=== PATIENT | male | born 1950 | race Caucasian/White ===

== ENCOUNTER → 2017-12-27 11:58 | Outpatient (CLI) | payer MEDICARE, OTHER, SELFPAY ==
--- NOTE | 2017-12-27 12:01 | DI.RAD.S_ITS ---
PROCEDURE: PAIN L/S TRANSFORAMINAL INJECT INDICATIONS: herniated nucleus pulposus l 4/5 right side. FINDINGS: Fluoroscopic spot filming was performed to verify placement of spinal needles at the left L4-5 interlaminar notch level(s), as labeled on the films. Appropriate location(s) of the needle tip(s) was confirmed by injection of iodinated contrast. IMPRESSION: Left L4-5 interlaminar notch needle tip localization. Dictated by: Rob Mosley M.D. on 12/27/2017 at 15:48 Approved by: Rob Mosley M.D. on 12/27/2017 at 15:49
[2017-12-27 12:37] VITALS: BP 123/73; PULSE 85; RESP 16; TEMP 37; O2SAT 100
[2017-12-27 13:36] VITALS: BP 128/77; PULSE 78; RESP 20; O2SAT 98
[2017-12-27 13:46] VITALS: BP 119/70; PULSE 75; RESP 16; O2SAT 100
--- NOTE | 2017-12-27 13:56 | PC.NURSE ---
post vital signs 122/73 pulse 78 oxygen 98% rr 16, pt remained alert, able to walk without assistance after discharge. Pt and understand instructions. They were given dc instruction sheet. Iv dc'd intact. neuro intact.
--- NOTE | 2017-12-27 14:34 | P.PCN_ITS ---
Procedures Date/Time Date of procedure: 12/27/17 Time of procedure: 13:26 General Procedure description: PATIENT: Daren Puente DATE OF : 1950 DATE OF SURGERY: 12/27/2017 PROVIDER: Lisandro Kelly DO Operative Note PREOP DIAGNOSIS 1. HNP WITH RADICULAR FEATURES, 2. MULTILEVEL CENTRAL STENOSIS, POST OP DIAGNOSIS 1. HNP WITH RADICULAR FEATURES, 2. MULTILEVEL CENTRAL STENOSIS, PROCEDURES 1. FLUORSCOPICALLY GUIDED CONTRAST CONTROLLED INTERLAMINAR EPIDURAL STEROID INJECTION - L4/5 PHYSICIAN: Lisandro Kelly DO INDICATIONs: Daren is referred by Dr. Graff for treatment of Bilateral Foraminal Stenosis R>L LE symptoms. FINDINGS Multilevel Central Spinal Stenosis with Nerve Root Compression DESCRIPTION OF PROCEDURE Fluoroscopically guided, contrast-controlled L4/5 translaminar epidural steroid injection. Following denial of allergy and review of potential side effects and complications, including, but not necessarily limited to, infection, allergic reaction, local tissue breakdown, temporary as well as permanent nerve injury, paralysis, stroke and possible , the patient indicated that the patient understood and agreed to proceed. An informed consent document was signed by the patient, witnessed by a nurse, and placed in the patient's chart. Additionally, other treatment options including modalities, medications, and physical therapy were reviewed with the patient. Per the patient request, IV conscious sedation was administered via 3mg of Versed to patient comfort. The patient's vital signs were monitored throughout the procedure by both the nurse and the physician without significant fluctuation. The patient remained conversant throughout the procedure. In the prone position, following sterile prep and drape of the lumbar region, the L4/5 translaminar space was identified fluoroscopically. The skin was anesthetized via a 25-gauge, 1.5-inch needle with 1% lidocaine solution. At this point, a 22-gauge short bevel spinal needle was atraumatically introduced and advanced under fluoroscopic guidance into the region of the L4/5 translaminar space. Depth was confirmed on lateral view. Radiological data, including multiple fluoroscopic views of the lumbar spine, reveal a spinal needle at the L4/5 translaminar space. Lateral views then show placement of the needle in the epidural space. Subsequent views show contrast material flowing superiorly and inferiorly in the epidural space. No vascular or intrathecal uptake is observed. At this point, using loss of resistance technique with saline and air, the epidural space was entered. This was confirmed following negative aspiration with injection of approximately 1.5 cc of Isovue 200, showing excellent epidural flow without vascular or intrathecal uptake. At this point, 1 cc of 1 % lidocaine solution combined with 3 cc or 20 mg of dexamethasone and 80mg Depo medrol was injected without incident. The patient was then transferred to the recovery area where they were observed for an appropriate period of time after the injection. The patient reported a VAS score of 6 prior to the procedure and a post-procedure VAS of 0. Total Fluoroscopy Time: 11.8 seconds, 8.99 mGy Total Conscious Sedation Time: 24min POST OP INSTRUCTIONS The patient was provided a Pain Log to continue to record their response to the target-specific procedure prior to follow-up visit with their referring physician. Additionally, specific post-injection care instructions and a contact number to our office were provided if concerns arise regarding possible complications associated with the procedure are suspected. Lisandro Kelly, Complications: none
== END ==
PROVIDERS: PCP Family Medicine Geriatric Medicine; Visit Provider Physical Medicine & Rehabilitation
DX: M51.26 Other intervertebral disc displacement, lumbar region (principal)
CPT/HCPCS: 64483; J1040; J1100; J2250

== ENCOUNTER 2018-01-25 08:09 | Outpatient (CLI) | payer MEDICARE, OTHER, SELFPAY ==
[2018-01-25 09:31] VITALS: BP 112/70; PULSE 64; RESP 20; TEMP 36.1; O2SAT 97
--- NOTE | 2018-01-25 09:56 | DI.RAD.S_ITS ---
PROCEDURE: PAIN L/SI FACET INJ/BLK 1STL INDICATIONS: 67 year-old male with facet joint arthropathy and spinal canal stenosis. FINDINGS: Fluoroscopic spot filming was performed to verify placement of spinal needles at the right L4-L5 and L5-S1 level(s), as labeled on the films. Appropriate location(s) of the needle tip(s) was confirmed by injection of iodinated contrast. IMPRESSION: Fluoroscopic guidance for bilateral L4-L5 and L5-S1 facet joint steroid injections. Dictated by: Noah Arreola M.D. on 01/25/2018 at 11:42 Approved by: Noah Arreola M.D. on 01/25/2018 at 11:45
--- NOTE | 2018-01-25 09:56 | PM.PROC.1 ---
Procedures Date/Time Date of procedure: 01/25/18 Time of procedure: 09:56 General Procedure description: PREOP DIAGNOSIS 1. FACET ARTHROPATHY 2. AXIAL LBP 3. MULTILEVEL DDD POST OP DIAGNOSIS 1. FACET ARTHROPATHY 2. AXIAL LBP 3. MULTILEVEL DDD PROCEDURES 1. FLUORSCOPICALLY GUIDED CONTRAST CONTROLLED FACET JOINT INJECTIONS BILATERAL L4/5, L5/S1 PHYSICIAN: DO DANNY Frazier Daren is referred by Dr. Graff for treatment of Axial LBP FINDINGS Multilevel Facet Arthropathy with Clinically significant axial LBP DESCRIPTION OF PROCEDURE Fluoroscopically guided, contrast-controlled bilateral L4/5, L5/S1 facet joint injections. Following denial of allergy and review of potential side effects and complications, including, but not necessarily limited to, infection, allergic reaction, local tissue breakdown, stroke, temporary or permanent nerve injury, paralysis, and possible , the patient indicated that the patient understood and agreed to proceed. An informed consent document was signed by the patient, witnessed by a nurse, and placed in the patient's chart. Additionally, other treatment options including medications, modalities, and physical therapy were reviewed with the patient. Per the patient request, IV conscious sedation was administered via 3mg of Versed to patient comfort. The patient's vital signs were monitored throughout the procedure by both the nurse and the physician without significant fluctuation. The patient remained conversant throughout the procedure. In the prone position, following sterile prep and drape of the lumbar region, the posterior aspect of the L4/5, L5/S1 facet joints were identified fluoroscopically. The skin was anesthetized via a 25-gauge 1.5-inch needle with 1% lidocaine solution into the corresponding facet joints. At this point, a 22-gauge 3.5-inch spinal needle was atraumatically introduced and advanced under fluoroscopic guidance into the corresponding facet joints. Following negative aspiration, injections of approximately 0.2-cc of Isovue 200 confirmed interarticular placement without vascular uptake. The identical procedure was then performed at the L4/5, L5/S1 facet joints on the left. Radiological data, including multiple fluoroscopic views of the lumbosacral spine, reveal a spinal needle at the L3/4, L5/S1 facet joints bilaterally. Subsequent views show flow of contrast material both superiorly and inferiorly within the joint space without vascular or intrathecal uptake. At this point, a total of 0.5 cc including a mixture of 0.25 cc Marcaine and 0.25 cc betamethasone was injected without complication into each of the corresponding facet joints. The patient was then transferred to the recovery area where they were observed for an appropriate period of time after the injection. The patient reported a VAS score of 7 prior to the procedure and a post-procedure VAS of 0. Total Fluoroscopy Time: 20.3 seconds Total Conscious Sedation Time: 24min POST OP INSTRUCTIONS The patient was provided a Pain Log to continue to record their response to the target-specific procedure prior to follow-up visit with their referring physician. Additionally, specific post-injection care instructions and a contact number to our office were provided if concerns arise regarding possible complications associated with the procedure are suspected. Lisandro Kelly, Complications: none
[2018-01-25 10:15] VITALS: BP 134/52; PULSE 65; RESP 21; O2SAT 100
[2018-01-25] MEDS: BETAMETHASONE 30 MG/5 ML MDV 6 MG INJ (10:15)
[2018-01-25] MEDS: MIDAZOLAM 5 MG/5 ML VIAL IV (10:15)
[2018-01-25] MEDS: IOPAMIDOL 15 ML VIAL 3 ML INJ (10:15)
[2018-01-25] MEDS: BETAMETHASONE 30 MG/5 ML MDV 12 MG INJ (10:15)
[2018-01-25] MEDS: LIDOCAINE 1% 20 ML INJ 10 ML INJ (10:15)
[2018-01-25 10:20] VITALS: BP 130/77; PULSE 67; RESP 12; O2SAT 100
[2018-01-25 10:25] VITALS: BP 128/78; PULSE 68; RESP 10; O2SAT 100
[2018-01-25 10:30] VITALS: BP 131/75; PULSE 66; RESP 9; O2SAT 100
[2018-01-25 10:44] VITALS: BP 108/67; PULSE 71; RESP 16; O2SAT 100
== END 2018-01-25 12:31 | disposition home or self-care (01) ==
PROVIDERS: PCP Family Medicine Geriatric Medicine; Visit Provider Physical Medicine & Rehabilitation
DX: M51.26 Other intervertebral disc displacement, lumbar region (principal); M41.20 Other idiopathic scoliosis, site unspecified; M47.816 Spondylosis without myelopathy or radiculopathy, lumbar region; M48.07 Spinal stenosis, lumbosacral region
CPT/HCPCS: 64493; 64494; 99152; 99153; J0702; J2250

== ENCOUNTER 2018-03-31 05:57 | Inpatient (IN) | payer MEDICARE, OTHER, SELFPAY ==
[2018-03-20 09:22] VITALS: BMI 27.1
[2018-03-31] VITALS (21 sets, daily range): BP systolic 108–145; BP diastolic 52–90; PULSE 14–96; RESP 10–20; TEMP 35.9–36.6; O2SAT 95–100; BMI 27.1
--- NOTE | 2018-03-31 07:22 | PM.PREOP ---
Pre-operative Note Interval Note Pre-op Check: Yes History & Physical Reviewed by Physician and Yes Exam Performed Changes: No
[2018-03-31] MEDS: LACTATED RINGERS 1,000 ML 42 ML IV ×2 (07:30→10:53)
[2018-03-31] MEDS: CEFAZOLIN 2 GM/100 ML FROZ.PIGGY IV ×3 (07:55→23:43)
--- NOTE | 2018-03-31 08:33 | SUR.OPER ---
Right lateral on padded OR table. Head on pillow, gel axillary roll, pillow to support left arm. Legs flexed, pillows between legs, gel pad under down leg and ankle. Multiple passes of 3 inch cloth tape across shoulder, hip, upper and lower legs to secure patient on OR table. Prone on spine table, head in foam head support, padded chest and pelvic supports, gel pad at knees, lower legs supported by pillows; nipples, genitalia and toes free of pressure, arms secured on foam padded arm boards at <90 degrees abduction. Tape over blanket at thigh secured to table.
[2018-03-31] MEDS: VANCOMYCIN 1,000 MG VIAL 1000 MG TOP (08:40)
[2018-03-31] MEDS: THROMBIN (BOVINE) 5,000 UNIT VIAL 5000 UNIT TOP (08:40)
[2018-03-31] MEDS: SODIUM CHLORIDE 0.9% 1,000 ML, GENTAMICIN 80 MG IRR (08:41)
[2018-03-31] MEDS: BUPIVACAINE 0.5% (PF) 4 ML, MORPHINE-PF 4 MG, BUTORPHANOL 1 MG, fentaNYL 100 MCG INJ (11:24)
--- NOTE | 2018-03-31 13:25 | P.OP_ITS ---
Operative Date/Time/Diagnoses Date of procedure: 03/31/18 Time of procedure: 13:16 Pre-op diagnosis: Lumbar stenosis with radiculopathy Lumbar scoliosis Post-op diagnosis: same Procedure & Clinicians Procedure: L4-5 anterior fusion with cage L4-5 posterior fusion L4-5 and L5-S1 laminectomies L5-S1 TLIF (post/post innerbody fusion) with cage L4, L5, S1 screws Iliac crest bone graft Use of microscope Placement of epidural catheter Same procedure as scheduled: Yes Indications: [age] year old male with intractable pain from stenosis. They had failed conservative management and requested operative intervention. Risks and benefits of surgery were discussed and appropriate consents were obtained. Surgeon: Fady Ramirez Vascular Manager: Nikki Huff Anesthesia Type: General Operative Notes Findings: none Closure Type: primary Specimen(s): none sent Implants & Drains: NuVasive Precept MAS screws NuVasive XLIF cage Globus Rise cage Applied: catheter Estimated Blood Loss (mL): 50 Procedure in detail: Patient was brought to the operating room and intubated on the table. Time-out was performed. They were then rolled over to the lateral decubitus position with the [id number]. The table was bent and they were taped down in the correct position. X-rays were taken to confirm a true AP and lateral. Preoperative antibiotics were given. The left flank was prepped and draped in standard sterile fashion. Using fluoroscopy, a 3 cm incision was made above the iliac crest. We bluntly dissected down with Metzenbaum scissors and split the 3 abdominal muscle layers. We dissected out the retroperitoneal space and using finger guidance, brought our 1st dilator down to the psoas muscle. Using neuromonitoring and fluoroscopy, we placed it through the psoas onto the L4-5 disc space in an anterior position and gradually pulled the dilator posteriorly along the disc space. We placed our guidewire and measured our depth for the retractor. We then dilated with the next 2 dilators and then placed our retractor over the dilators. Position was confirmed with fluoroscopy and the retractor was locked down to the bar. We opened up the retractor and checked with neuro monitoring. We then placed the rosalina and again checked with neuro monitoring. The retractor was opened further and the ALL retractor was placed. An annulotomy was performed. We then performed a complete diskectomy with ring curette, pituitary, box osteotome. A Lynne was advanced across the disc space under fluoroscopy to release the lateral annulus on the opposite side. We then used sequentially larger trials and confirmed under fluoroscopy. An XLIF cage was packed with Osteocell bone graft and impacted into the L4-5 disc space with fluoroscopy for the anterior fusion at this level. The wound was irrigated. The retractor was closed down. The rosalina was removed. We carefully removed the retractor with direct visualization to make sure there was no neurovascular or abdominal injury. Final x-rays were taken. The muscle fascia was closed, superficial tissue was closed. The skin was closed. Sterile dressing was placed. The patient was then rolled over on the well-padded prone position on the Shawn table. Using fluoroscopy for localization, a 5 cm incision was made to the right of the midline. We split through the right paraspinal muscles. We then used a combination of neural monitoring and fluoroscopy to place Jamshidi needles down the right pedicles of L4, L5, and S1. These were switched to guidewires. We then tapped and placed our screw shanks. We opened up the retractor and cleared off our posterolateral gutter and used a bur on the transverse processes. We then cleared medially and opened up the medial blade. We brought in the microscope. We then began placing our screws. A laminectomy was performed at L4-5 and L5- S1 with a bur and Kerrison rongeurs. There was an extremely large facet cyst growing at L4-5 that had to be carefully dissected off the dura until we had cleared. At that point we could reach across the opposite side. We carefully depressed the dura to reach to the opposite side and decompress the entire central canal. We cleared out the neural foramen. In the end the ball probe could be placed cephalad and caudally across to the opposite side in the foramen and everything was opened. We then began our TLIF. Wecompleted our facetectomy on the right at L5-S1 to loosen up the side as well as open up the neural foramen more. The dura was retracted medially and the disc was prepared with bipolar. A scalpel used for an annulotomy. We then performed a complete diskectomy with a combination of paddles, Roz, curettes, pituitaries. The disc space was packed with Osteocell bone graft and the globus Rise cage was placed and expanded under fluoroscopy. We had good expansion and lifting up on the right-hand side. This completed the posterior fusion portion of the TLIF at L5S1. The wound was copiously irrigated. An epidural catheter was primed with 4mL of 0.5% bupivacaine, 100 mcg fentanyl, 4 mg Duramorph, 1 mg Stadol. The dura was depressed under the cephalad lamina with a ball probe and the epidural catheter was gently advanced 6 cm cephalad. We then removed the retractor and placed the screw heads and locked the ronnie down. A small stab incision was made over the PSIS and a Jamshidi needle was placed into the iliac crest and several mL of bone marrow was aspirated. This was mixed with our locally harvested bone graft as well as the remaining Osteocell and placed in the posterolateral gutter for the posterior fusion at L4-5 and for the TLIF at L5-S1. The fascia was then closed. The epidural was then injected without resistance. The catheter was pulled and we closed more over the fascia. We then went to the left-hand side. Another 5 cm incision was made on the left. Bovie was used to split the fascia. We then used fluoro and monitoring to percutaneously place our Jamshidi needles on the left at L4, L5 and S1. We switched the guidewires, tapped and placed our screws. We placed a ronnie and locked it down. Final x-rays were taken. The wound was irrigated and the fascia was closed. Vancomycin powder was placed in the wounds. The superficial and skin were closed. Sterile dressing was placed. The patient was then rolled over, extubated, brought to the recovery room with no complications. Complications: none Condition: stable Disposition: PACU Plan for aftercare: Inpatient. Up with physical therapy.
[2018-03-31] MEDS: fentaNYL 100 MCG/2 ML INJ 50 MCG IV ×4 (13:30→13:51)
--- NOTE | 2018-03-31 13:33 | SUR.PHASEI ---
medicated for pain. appears more relaxed less restless.
--- NOTE | 2018-03-31 13:37 | SUR.PHASEI ---
continues to c/o pain and burning in lower back additional pain medication provided.
[2018-03-31] MEDS: hydrOXYzine 50 MG/ML INJ IM (13:46)
[2018-03-31] MEDS: HYDROMORPHONE 2 MG INJ 0.5 MG IV ×3 (13:55→14:21)
[2018-03-31] MEDS: HYDROCODONE/ACET 5/325 TABLET 2 TAB PO ×2 (15:06→18:57)
--- NOTE | 2018-03-31 15:20 | PC.NURSE ---
patient settled in from pacu. alert and conversant, family at bedside. denies nausea. 2 norco tabs given w/ crackers and cran juice for pain rated 4/10. foot scd's on. report given to abad guerrero. call light in reach.
[2018-03-31] MEDS: GABAPENTIN 600 MG TABLET PO ×2 (15:30→20:15)
[2018-03-31] MEDS: CELECOXIB 200 MG CAPSULE 400 MG PO (15:31)
[2018-03-31] MEDS: LACTATED RINGERS 1,000 ML 125 ML IV (15:35)
[2018-03-31] MEDS: HYDROMORPHONE 1 MG INJ 0.5 MG IV (15:52)
--- NOTE | 2018-03-31 16:54 | PT.IIE ---
Current Diagnoses Scoliosis, unspecified (03/31/18) Unspecified inflammatory spondylopathy, lumbar region (03/31/18) Spinal stenosis, lumbar region with neurogenic claudication (03/31/18) Radiculopathy, lumbar region (03/31/18) Surgery Performed Operation Date: 03/31/18 07:45 Actual Procedures p L4-5,L5-S1 Laminectomies & Ant/Post Instru. 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 (Acute) Degenerative lumbar spinal stenosis (Acute) Depression (Acute) Diverticulosis (Acute) H/O wisdom tooth extraction (Acute) Hearing loss (Acute) History of labyrinthitis (Acute ~2008) Hypothyroidism, unspecified (Acute) Low back pain (Acute) Lumbar facet arthropathy (Acute) Lumbar radiculopathy (Acute) Perforation of colon as colonoscopy complication (Acute ~2012) Scoliosis of lumbar spine (Acute) Sleep apnea (Acute) Spinal stenosis, lumbar region with neurogenic claudication (Acute) Testicular hypogonadism (Acute) Physical Therapy Inpatient Evaluation/Re-Eval M1 PT/OT-IP Prior Functional Status Start: 03/31/18 16:58 Freq: NEEDED Status: Active Protocol: Document 03/31/18 16:54 MDD (Rec: 03/31/18 17:12 MDD [id number]) Medical Review Prior Functional Status Medical History Reviewed Yes Communication normal Mobility and Gait independent with no AD Activities of Daily Living and IADL's independent Social History Household Members spouse Living Arrangements House Number of Floors (Floors) One Floor Number of Stairs To Enter/Railing? 2 steps to enter, no handrails Home Environment Standard Height Toilet Walk in Shower Home Equipment Straight Cane Shower Seat without Backrest Grab Bars Near Toilet Grab Bars In Shower Employment Status Retired Additional Social History Comment Pt lives on [address] with his , Yudith. He prefers to be called Zeke . They recently purchased a toilet frame with bars on either side. M2 PT-IP Current Condition Start: 03/31/18 16:58 Freq: NEEDED Status: Active Protocol: Document 03/31/18 16:54 MDD (Rec: 03/31/18 17:12 MDD [id number]) Physical Therapy Current Condition Current Condition Evaluation Date 03/31/18 Treatment Diagnosis s/p Lumbar fusion Onset Date 03/31/18 Precautions Lumbar Precautions Log Roll No Twisting Limit Bending Lifting Restriction of 10 lbs Gait Belt above Incisional Area Other Precautions burnett catheter M3 PT-IP Subjective Start: 03/31/18 16:58 Freq: NEEDED Status: Active Protocol: Document 03/31/18 16:54 MDD (Rec: 03/31/18 17:12 MDD [id number]) Subjective Physical Therapy Visit Type Type Initial Evaluation Visit Start Time 16:19 Visit Stop Time 16:54 Total Visit Minutes 35 Notes BP supine: 114/54 mm Hg sitting EOB: 145/83 mm Hg After activity: 108/52 mm Hg 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 Therapy Pain Assessment Pain When Pain Assessed At Rest Pain Present Pain Present Pain Reported Location Back Intensity 4 Scale Used Numeric (1 - 10) Description Aching Pain Management Techniques Apply Cold M4 PT-IP Mobility and Gait Start: 03/31/18 16:58 Freq: NEEDED Status: Active Protocol: Document 03/31/18 16:54 MDD (Rec: 03/31/18 17:12 MDD [id number]) PT-Bed Mobility Assessment Rolling Type of Rolling Roll to Left Level of Assist Independent Supine to Sit Supine to Sit Contact Guard Assistance Sit to Supine Sit to Supine Independent Scooting Scooting to Edge of Bed Standby Assistance PT-Transfer Assessment Sit to and From Stand Sit to and from Stand Contact Guard Assistance Equipment Transfer Assistive Device Gait Belt Front Wheeled Walker Comments Mobility Comments Pt stood for 3 minutes. Reported dizziness/ lightheadedness, so returned to bed. PT-Balance Assessment Sitting Balance and Reactions Static Sitting Balance Ability Normal Dynamic Sitting Balance Ability Normal Standing Balance and Reactions Static Standing Balance Ability Good M5 PT-IP Objective Assessments Start: 03/31/18 16:58 Freq: NEEDED Status: Active Protocol: Document 03/31/18 16:54 MDD (Rec: 03/31/18 17:12 MDD [id number]) Orientation Orientation/Cognition Level of Alertness Alert Orientation Name Age Birthday Month Date Year Day of Week Place Situation Language Function Ability No Deficits Noted Safety Awareness Understands Safety Issues Memory Description No Deficits Noted Gross Range of Motion Lower Extremity ROM Assessment Within Functional Limits Strength Lower Extremity Strength Assessment Within Functional Limits Coordination Assessment Gross Coordination Gross Coordination WNL Sensation Assessment Sensation Gross Sensation WNL M6 PT-IP Treatment Start: 03/31/18 16:58 Freq: NEEDED Status: Active Protocol: Document 03/31/18 16:54 MDD (Rec: 03/31/18 17:12 MDD [id number]) Physical Therapy Treatment Education Education Provided Precautions Post-Op Packet Safety M7 PT-IP Assessment and Plan Start: 03/31/18 16:58 Freq: NEEDED Status: Active Protocol: Document 03/31/18 16:54 MDD (Rec: 03/31/18 17:12 MDD [id number]) PT Summary Assessment and Plan Potential Rehabilitation Potential Excellent Status of Condition at Evaluation Stable Summary Impairments Pain Transfers Gait Activity Tolerance Progress Towards Goals Progressing Toward Goals Assessment Summary On examination today pt demonstrates excellent LE strength, required SBA for bed mobility using log roll and good static balance in standing. He did report some dizziness and BP was slightly elevated, so did not attempt additional gait training. Pt' s prior level of function was independent with no AD. He should continue to benefit from skilled therapy to maximize function for safe d/c home. Goals Bed Mobility Goal Independent Transfer Goal Independent Gait Goal Independent Front Wheel Walker Gait Distance 100 feet Other Goals 2 steps with no handrails Days to Meet Goals 3 Frequency of Treatment Frequency Of Treatment Twice a Day Treatment Plan Physical Therapy Treatment Plan Bed Mobility Training Transfer Training Gait Training Therapeutic Exercise Other Recommendations and Next Treatment review bed mobility, spinal Focus precautions. Progress gait and trial stairs if appropriate. Recommendations To Nursing Amount of Assist Needed 1 Person Assist Discharge Recommendations PT Discharge Recommendations Home with Assistance Equipment Needed for Home Before FWW - discussed with Discharge today, provided with list of DME suppliers.
--- NOTE | 2018-03-31 17:07 | PC.NURSE ---
Pt reports pain increasing s/p vicodin administration. Encouraged pt to move from back lying to side lying and pt does this with assistance and reinforcement in log rolling technique. Ice to back. Two small areas of shadowy drainage visible on back surgical dressing and these were outlined. Graft site dressing to left flank is intact. Reports pain improved in side lying position, but remains 6-7/10. Given iv dilaudid as ordered with excellent results. P.T. in to mobilize pt. Pt's spouse is present in room, attentive and supportive. Involved in pt's care.
[2018-03-31] MEDS: hydrOXYzine pamoate 25 MG CAPSULE PO (18:57)
[2018-03-31] MEDS: SENNOSIDES 8.6 MG TABLET 17.2 MG PO (20:15)
[2018-03-31] MEDS: METOPROLOL ER 25 MG TABLET 12.5 MG PO (20:16)
[2018-03-31] MEDS: TAMSULOSIN 0.4 MG CAPSULE PO ×2 (20:16)
[2018-03-31] MEDS: DOCUSATE 100 MG CAPSULE PO (20:16)
[2018-03-31] MEDS: CELECOXIB 200 MG CAPSULE PO (20:19)
[2018-03-31] MEDS: HYDROCODONE/ACET 5/325 TABLET 1 TAB PO (23:46)
[2018-04-01] VITALS (8 sets, daily range): BP systolic 97–126; BP diastolic 45–71; PULSE 64–81; RESP 12–19; TEMP 36.4–36.9; O2SAT 70–100
[2018-04-01] MEDS: LACTATED RINGERS 1,000 ML 125 ML IV (01:41)
[2018-04-01] MEDS: HYDROCODONE/ACET 5/325 TABLET 1 TAB PO (03:48)
[2018-04-01] MEDS: HYDROMORPHONE 0.5 MG INJ 0.2 MG IV (05:18)
[2018-04-01] MEDS: LIOTHYRONINE 5 MCG TABLET 10 MCG PO (05:51)
[2018-04-01] MEDS: LEVOTHYROXINE 75 MCG TABLET PO (05:51)
[2018-04-01 06:24] LABS: Hematocrit 37.5 % (41-53)
[2018-04-01 06:35] LABS: BUN Creatinine Ratio 18.8 (6-22); Blood Urea Nitrogen 15 mg/dL (9-20); Calcium 8.6 mg/dL (8.4-10.2); Carbon Dioxide 30 mmol/L (22-32); Chloride 105 mmol/L (98-107); Estimated Glomerular Filt Rate > 60.0 mL/min (>60); Glucose 118 mg/dL (80-110); HEMOLYSIS < 15 (0-50); Potassium 3.6 mmol/L (3.4-5.1); Sodium 141 mmol/L (137-145)
--- NOTE | 2018-04-01 08:18 | PM.PNPO.1 ---
Subjective Date Patient Seen: 04/01/18 Time Patient Seen: 08:18 Interval history: pain is about 4/10. He is doing very well. Exam Vital Signs (past 8 hours): - 04/01/18 03:49 04/01/18 05:52 04/01/18 07:40 Temperature 98.1 F 97.9 F Pulse Rate 75 67 64 Respiratory Rate 16 18 12 Blood Pressure 97/45 L 100/54 L 98/54 L Pulse Oximetry 95 99 100 Oxygen Delivery Method Room Air Const Orientation: alert and oriented x3 Back/Spine/Pelvis Other: Dressing with moderate drainage. 5/5 motor both lower extremities. Objective Labs Result Diagrams: 04/01/18 05:50 04/01/18 05:50 Labs: Laboratory Results - last 24 hr 04/01/18 04/01/18 05:50 05:50 Hgb 13.0 L Hct 37.5 L Sodium 141 Potassium 3.6 Chloride 105 Carbon Dioxide 30 BUN 15 Creatinine 0.80 Estimated GFR > 60.0 BUN/Creatinine Ratio 18.8 Glucose 118 H Calcium 8.6 Assessment & Plan Post-op Postoperative Procedures Operation Date: 03/31/18 07:45 Actual Procedures Side Surgeon p L4-5,L5-S1 Laminectomies & Ant/Post Instru. Fusion w/Bone Graft Not Applicable Fady Ramirez MD He is doing well after his laminectomy infusion. Mobilize with therapy today. Quality VTE Deep Vein Thrombosis/Pulmonary Embolism Present on Admission: No
--- NOTE | 2018-04-01 08:49 | CM.IDA ---
DCP Assessment Note: Pt is a 67 yo male, POD#1 from spinal surgery w/ Dr Ramirez. Pt's PCP is Dr Kristin Graff; Insurance is Medicare/[employer] Pt indp and active at baseline, retired and living on [address] w/his Yudith. Pt and spouse eager to return home Tuesday, no expected barriers to safe DC home w/spouse to assist. PT has recommended same; home w/spouse. [facility] Discharge Planning/Care Management CM Discharge Assessment Start: 04/01/18 08:44 Freq: Status: Active Protocol: Document 04/01/18 08:45 CHICA (Rec: 04/01/18 08:49 CHICA [id number]) Discharge Planning Assessment Assigned Automatic Dry Starch Operator CHICA DPOA/Assigned Designee Name Yudith Puente, spouse Contact Information [phone] Advance Directives? Yes Advance Directives on File No History Provided By Significant Other Prior Living Arrangements House Comment [facility] Household Members spouse Type of transporation used prior to Drives own vehicle admit Independent with ADL's Yes Is patient alert and oriented? Yes Comment Home w/spouse to assist is expected. Barriers to Discharge No Discharge Plan Home Transportation Arrangement Spouse Referrals Initiated None needed Additional Comment PT Rec: Home w/spouse and FWW. Whiteboard Updated in Patient Room with Yes name and ext. # of Automatic Dry Starch Operator
[2018-04-01] MEDS: CELECOXIB 200 MG CAPSULE PO ×2 (09:37→20:39)
[2018-04-01] MEDS: FISH OIL 1,000 MG CAPSULE 1000 MG PO (09:37)
[2018-04-01] MEDS: GABAPENTIN 600 MG TABLET PO ×3 (09:37→20:39)
[2018-04-01] MEDS: DOCUSATE 100 MG CAPSULE PO ×2 (09:37→20:39)
[2018-04-01] MEDS: ASPIRIN EC 81 MG TABLET PO (09:37)
[2018-04-01] MEDS: buPROPion XL 150 MG TAB PO (09:37)
[2018-04-01] MEDS: HYDROCODONE/ACET 5/325 TABLET 2 TAB PO ×4 (09:38→22:52)
[2018-04-01] MEDS: hydrOXYzine pamoate 25 MG CAPSULE PO ×3 (11:17→22:53)
--- NOTE | 2018-04-01 11:19 | OT.IP.EVAL ---
Current Diagnoses Scoliosis, unspecified (03/31/18) Unspecified inflammatory spondylopathy, lumbar region (03/31/18) Spinal stenosis, lumbar region with neurogenic claudication (03/31/18) Radiculopathy, lumbar region (03/31/18) Surgery Performed Operation Date: 03/31/18 07:45 Actual Procedures p L4-5,L5-S1 Laminectomies & Ant/Post Instru. 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 (Acute) Degenerative lumbar spinal stenosis (Acute) Depression (Acute) Diverticulosis (Acute) H/O wisdom tooth extraction (Acute) Hearing loss (Acute) History of labyrinthitis (Acute ~2008) Hypothyroidism, unspecified (Acute) Low back pain (Acute) Lumbar facet arthropathy (Acute) Lumbar radiculopathy (Acute) Perforation of colon as colonoscopy complication (Acute ~2012) Scoliosis of lumbar spine (Acute) Sleep apnea (Acute) Spinal stenosis, lumbar region with neurogenic claudication (Acute) Testicular hypogonadism (Acute) Surgical History (Last Updated 03/20/18 @ 10:26 by Armida Abarca RN) H/O cardiac radiofrequency ablation (Acute) S/P epidural steroid injection (Acute) Occupational Therapy Inpatient Evaluation/Re-Eval M1 PT/OT-IP Prior Functional Status Start: 03/31/18 16:58 Freq: NEEDED Status: Active Protocol: Document 03/31/18 16:54 MDD (Rec: 03/31/18 17:12 MDD [id number]) Medical Review Prior Functional Status Medical History Reviewed Yes Communication normal Mobility and Gait independent with no AD Activities of Daily Living and IADL's independent Social History Household Members spouse Living Arrangements House Number of Floors (Floors) One Floor Number of Stairs To Enter/Railing? 2 steps to enter, no handrails Home Environment Standard Height Toilet Walk in Shower Home Equipment Straight Cane Shower Seat without Backrest Grab Bars Near Toilet Grab Bars In Shower Employment Status Retired Additional Social History Comment Pt lives on [address] [facility] [address] with his , Yudith. He prefers to be called Zeke . They recently purchased a toilet frame with bars on either side. M1 PT/OT-IP Prior Functional Status Start: 04/01/18 10:58 Freq: NEEDED Status: Active Protocol: Document 04/01/18 10:59 [facility] (Rec: 04/01/18 11:18 [facility] [id number]) Medical Review Prior Functional Status Medical History Reviewed Yes Communication normal Mobility and Gait independent with no AD, not able to walk much do to pain Activities of Daily Living and IADL's independent with increased time Social History Household Members spouse Living Arrangements House Number of Floors (Floors) One Floor Number of Stairs To Enter/Railing? 2 steps to enter, no handrails Pt state friends to install handrail on one side. Home Environment Standard Height Toilet Walk in Shower Home Equipment Straight Cane Shower Seat without Backrest Grab Bars Near Toilet Grab Bars In Shower Employment Status Retired Additional Social History Comment Pt lives on [address] [facility] [address] with his , Yudith. He prefers to be called Zeke . They recently purchased a toilet frame with bars on either side. Pt may need to get FWW here prior to discharge if unable to get one . M2 OT-IP Current Condition Start: 04/01/18 10:58 Freq: Status: Active Protocol: Document 04/01/18 10:59 [facility] (Rec: 04/01/18 11:18 [facility] [id number]) Occupational Therapy Current Condition Current Condition Evaluation Date 04/01/18 Treatment Diagnosis Lumbar fusion Diagnosis Onset Date 03/31/18 Post Operative Precautions Lumbar Precautions Log Roll No Twisting Limit Bending Lifting Restriction of 10 lbs Gait Belt above Incisional Area Other Precautions burnett catheter M3 OT- IP Subjective and Pain Start: 04/01/18 10:58 Freq: Status: Active Protocol: Document 04/01/18 10:59 [facility] (Rec: 04/01/18 11:18 [facility] [id number]) OT- Subjective Occupational Therapy Visit Type Type Initial Evaluation Visit Start Time 10:10 Visit Stop Time 10:55 Total Visit Minutes 45 Occupational Therapy Visit Comments Patient/Caregiver Goals Pt wanting to go home when stable. OT Pain Assessment Pain When Pain Assessed During Mobility Pain Present Pain Present Pain Reported Location Back Intensity 5 Scale Used Numeric (1 - 10) M4 OT- IP ADL's Start: 04/01/18 10:58 Freq: Status: Active Protocol: Document 04/01/18 10:59 [facility] (Rec: 04/01/18 11:18 [facility] [id number]) OT ADL-Dressing General Eval Upper Body Dressing Ability Standby Assistance Lower Body Dressing Ability Maximum Assistance Areas Needing Assistance Socks Comments OT Dressing Comments Educated pt on AED for LB dressing and now able to do all , except tie shoes,pt's able to assist. OT ADL-Toileting Comments OT Toileting Comments Pt has already ordered toilet aid, otherwise suggested urinal and to stand to wipe. M6 OT- IP Functional Cognition Start: 04/01/18 10:58 Freq: Status: Active Protocol: Document 04/01/18 10:59 [facility] (Rec: 04/01/18 11:18 [facility] [id number]) Cognitive Factors Limiting Selfcare Function Cognitive Ability Level of Alertness Alert Patient Orientation Name Age Birthday Month Date Year Day of Week Place Situation Attention Span Ability Capable of Focused Attention Capable of Sustained Attention Ability to Follow Commands Able to Follow Multi-Step Commands Memory Description No Deficits Noted Safety Awareness Underestimates Need for Assistance Cognitive Comments Cognitive Assessment Comments Pt needing vc to slow down and suggested to have use of FWW initially especially for gravel at home and gait belt for able to steady him on uneven surfaces. OT- Vision and Hearing OT- Hearing Assessment OT- Hearing Assessment WFL M7 OT- IP Mobility and Balance Start: 04/01/18 10:58 Freq: Status: Active Protocol: Document 04/01/18 10:59 [facility] (Rec: 04/01/18 11:18 [facility] [id number]) OT- Bed Mobility Assessment Rolling Type of Rolling Roll to Left Supine to Sit Supine to Sit Assist Standby Assistance OT-Transfer Assessment Sit to and From Stand Sit to and from Stand Standby Assistance Transfers Transfer Ability Contact Guard Assistance Technique Transfer Destination Bed Chair Transfer Technique Stand Step Pivot Devices Transfer Assistive Devices Gait Belt Front Wheeled Walker Comments Mobility Comments Pt a little unsteady during turns and vc to slow down. OT- Balance Assessment Sitting Balance and Reactions Static Sitting Balance Ability Normal Dynamic Sitting Balance Ability Normal Standing Balance and Reactions Static Standing Balance Ability Good Dynamic Standing Balance Ability Fair M8 OT- IP Objective Assessments Start: 04/01/18 10:58 Freq: Status: Active Protocol: Document 04/01/18 10:59 [facility] (Rec: 04/01/18 11:18 [facility] [id number]) OT Gross Range of Motion Upper Extremity Range of Motion Assessment Within Functional Limits OT Strength Upper Extremity Strength Assessment Within Functional Limits OT-Muscle Tone Assessment Muscle Tone WNL Yes M9 OT- IP Assessment and Plan Start: 04/01/18 10:58 Freq: Status: Active Protocol: Document 04/01/18 10:59 [facility] (Rec: 04/01/18 11:18 [facility] [id number]) OT Summary Assessment and Plan Potential Rehabilitation Potential Excellent Analytic Complexity at Evaluation Low Summary OT Impairments Pain Balance Functional Mobility Bathing Progress Towards Goals Progressing Toward Goals Assessment Summary Pt low complexity main barriers are pain and steps. Pt has a very supportive and capable to assist pt when medically stable. Goals Bathing Goal Standby Assistance Shower Transfer Goal Standby Assistance Patient/Caregiver Education Goal Caregiver Independent Assisting Patient Days to Meet Goals 1 Frequency of Treatment Frequency Of Treatment Once a Day Treatment Plan OT Treatment Plan Patient/Family Education Discharge Planning Discharge Recommendations OT Discharge Recommendations Home with Assistance Home Equipment Needs FWW
--- NOTE | 2018-04-01 12:21 | PT.IPTN ---
Current Diagnoses Scoliosis, unspecified (03/31/18) Unspecified inflammatory spondylopathy, lumbar region (03/31/18) Spinal stenosis, lumbar region with neurogenic claudication (03/31/18) Radiculopathy, lumbar region (03/31/18) Surgery Performed Operation Date: 03/31/18 07:45 Actual Procedures p L4-5,L5-S1 Laminectomies & Ant/Post Instru. Fusion w/Bone Graft(Not Applicable) - Fady Ramirez MD Physical Therapy Treatment Note M2 PT-IP Current Condition Start: 03/31/18 16:58 Freq: NEEDED Status: Active Protocol: Document 03/31/18 16:54 MDD (Rec: 03/31/18 17:12 MDD [id number]) Physical Therapy Current Condition Current Condition Evaluation Date 03/31/18 Treatment Diagnosis s/p Lumbar fusion Onset Date 03/31/18 Precautions Lumbar Precautions Log Roll No Twisting Limit Bending Lifting Restriction of 10 lbs Gait Belt above Incisional Area Other Precautions burnett catheter M3 PT-IP Subjective Start: 03/31/18 16:58 Freq: NEEDED Status: Active Protocol: Document 04/01/18 12:10 GGD (Rec: 04/01/18 12:21 GGD [id number]) Subjective Physical Therapy Visit Type Type Treatment Note Visit Start Time 11:45 Visit Stop Time 12:10 Total Visit Minutes 25 Number of PHOTOGRAPHIC SPECIALIST Visits 1 Physical Therapy Visit Comments Patient Comments Pt states he doing a better. Therapy Pain Assessment Pain When Pain Assessed At Rest Pain Present Pain Present Pain Reported Location Back Intensity 5 Scale Used Numeric (1 - 10) Pain Management Techniques Apply Cold Re-positioning Timing of Activity with Medications M4 PT-IP Mobility and Gait Start: 03/31/18 16:58 Freq: NEEDED Status: Active Protocol: Document 04/01/18 12:10 GGD (Rec: 04/01/18 12:21 GGD [id number]) PT-Bed Mobility Assessment Rolling Type of Rolling Roll to Right Level of Assist Independent Supine to Sit Supine to Sit Contact Guard Assistance Scooting Scooting to Edge of Bed Standby Assistance PT-Transfer Assessment Sit to and From Stand Sit to and from Stand Contact Guard Assistance Equipment Transfer Assistive Device Gait Belt Front Wheeled Walker Transfers Transfer Destination Chair Gait Assessment Gait Gait Assistance Required: Contact Guard Assist Distance (Feet) (feet) 200 Able to Maintain Weight Bearing Status Yes During Gait Assistive Devices Assistive Device Gait Belt Front Wheeled Walker Gait Deviations General Gait Pattern Decreased Stride Length Factors Limiting Gait Function Factors Limiting Gait Function Pain Stair Climbing Assessment Evaluation Level of Assist On Stairs Contact Guard Assistance Devices Stair Climbing Assistive Devices Right Railing Technique/Endurance Stair Climbing Direction Ascend and Descend Stair Climbing Technique Step to Step Number of Steps Climbed 3 Query Text: Stair Climbing Set # Repetitions (reps) 1 M5 PT-IP Objective Assessments Start: 03/31/18 16:58 Freq: NEEDED Status: Active Protocol: Document 03/31/18 16:54 MDD (Rec: 03/31/18 17:12 MDD [id number]) Orientation Orientation/Cognition Level of Alertness Alert Orientation Name Age Birthday Month Date Year Day of Week Place Situation Language Function Ability No Deficits Noted Safety Awareness Understands Safety Issues Memory Description No Deficits Noted Gross Range of Motion Lower Extremity ROM Assessment Within Functional Limits Strength Lower Extremity Strength Assessment Within Functional Limits Coordination Assessment Gross Coordination Gross Coordination WNL Sensation Assessment Sensation Gross Sensation WNL M6 PT-IP Treatment Start: 03/31/18 16:58 Freq: NEEDED Status: Active Protocol: Document 04/01/18 12:10 GGD (Rec: 04/01/18 12:21 GGD [id number]) Physical Therapy Treatment Education Education Provided Precautions M7 PT-IP Assessment and Plan Start: 03/31/18 16:58 Freq: NEEDED Status: Active Protocol: Document 04/01/18 12:10 GGD (Rec: 04/01/18 12:21 GGD [id number]) PT Summary Assessment and Plan Summary Assessment Summary Pt improving with mobility. He was safe with mobility and stairs. He had goo log roll technique. Frequency of Treatment Frequency Of Treatment Twice a Day Treatment Plan Physical Therapy Treatment Plan Bed Mobility Training Transfer Training Gait Training Therapeutic Exercise Recommendations To Nursing Amount of Assist Needed 1 Person Assist Discharge Recommendations PT Discharge Recommendations Home with Assistance
--- NOTE | 2018-04-01 14:54 | PC.NURSE ---
Ortho: Worked with physical therapy. Moves slowly but he reports he did better than he thought. Epidural wearing off this afternoon and pt is reporting more pain now, has received vicodin twice and vistaril once, still is having adaquete pain control per pt. Dressings changed to low back and lt flank. Incisions are sutured, edges approx, minimal redness, some bruises. New coversite dressings applied to both areas. Is following his lami precautions and log rolling. Ppp w/feet =/warm. Declined burnett removal and decided he would have it removed in am. Denies any other concerns. Cont w/poc.
--- NOTE | 2018-04-01 15:36 | PT.IPTN ---
Current Diagnoses Scoliosis, unspecified (03/31/18) Unspecified inflammatory spondylopathy, lumbar region (03/31/18) Spinal stenosis, lumbar region with neurogenic claudication (03/31/18) Radiculopathy, lumbar region (03/31/18) Surgery Performed Operation Date: 03/31/18 07:45 Actual Procedures p L4-5,L5-S1 Laminectomies & Ant/Post Instru. Fusion w/Bone Graft(Not Applicable) - Fady Ramirez MD Physical Therapy Treatment Note M2 PT-IP Current Condition Start: 03/31/18 16:58 Freq: NEEDED Status: Active Protocol: Document 03/31/18 16:54 MDD (Rec: 03/31/18 17:12 MDD [id number]) Physical Therapy Current Condition Current Condition Evaluation Date 03/31/18 Treatment Diagnosis s/p Lumbar fusion Onset Date 03/31/18 Precautions Lumbar Precautions Log Roll No Twisting Limit Bending Lifting Restriction of 10 lbs Gait Belt above Incisional Area Other Precautions burnett catheter M3 PT-IP Subjective Start: 03/31/18 16:58 Freq: NEEDED Status: Active Protocol: Document 04/01/18 15:29 GGD (Rec: 04/01/18 15:35 GGD [id number]) Subjective Physical Therapy Visit Type Type Treatment Note Visit Start Time 14:55 Visit Stop Time 15:25 Total Visit Minutes 30 Number of CAREER AGENT Visits 2 Physical Therapy Visit Comments Patient Comments Pt states his got a FWW. Therapy Pain Assessment Pain When Pain Assessed At Rest Pain Present Pain Present Pain Reported Location Back Intensity 3 Scale Used Numeric (1 - 10) Description Aching Pain Management Techniques Re-positioning Timing of Activity with Medications M4 PT-IP Mobility and Gait Start: 03/31/18 16:58 Freq: NEEDED Status: Active Protocol: Document 04/01/18 15:29 GGD (Rec: 04/01/18 15:35 GGD [id number]) PT-Bed Mobility Assessment Rolling Type of Rolling Roll to Right Level of Assist Standby Assistance Supine to Sit Supine to Sit Standby Assistance Sit to Supine Sit to Supine Independent Scooting Scooting to Edge of Bed Independent PT-Transfer Assessment Sit to and From Stand Sit to and from Stand Standby Assistance Use of Upper Extremities Equipment Transfer Assistive Device None Gait Belt Transfers Transfer Destination Bed Gait Assessment Gait Gait Assistance Required: Contact Guard Assist Distance (Feet) (feet) 300 Able to Maintain Weight Bearing Status Yes During Gait Assistive Devices Assistive Device None Gait Belt Comments Gait Comments Ambulation without assistive device. M5 PT-IP Objective Assessments Start: 03/31/18 16:58 Freq: NEEDED Status: Active Protocol: Document 03/31/18 16:54 MDD (Rec: 03/31/18 17:12 MDD [id number]) Orientation Orientation/Cognition Level of Alertness Alert Orientation Name Age Birthday Month Date Year Day of Week Place Situation Language Function Ability No Deficits Noted Safety Awareness Understands Safety Issues Memory Description No Deficits Noted Gross Range of Motion Lower Extremity ROM Assessment Within Functional Limits Strength Lower Extremity Strength Assessment Within Functional Limits Coordination Assessment Gross Coordination Gross Coordination WNL Sensation Assessment Sensation Gross Sensation WNL M6 PT-IP Treatment Start: 03/31/18 16:58 Freq: NEEDED Status: Active Protocol: Document 04/01/18 12:10 GGD (Rec: 04/01/18 12:21 GGD [id number]) Physical Therapy Treatment Education Education Provided Precautions M7 PT-IP Assessment and Plan Start: 03/31/18 16:58 Freq: NEEDED Status: Active Protocol: Document 04/01/18 15:29 GGD (Rec: 04/01/18 15:35 GGD [id number]) PT Summary Assessment and Plan Summary Assessment Summary Pt improving with bed mobility and abmulation. He was safe with ambulation without assistive device with no unsteadiness. He S/C home with when medically stable. Frequency of Treatment Frequency Of Treatment Twice a Day Treatment Plan Physical Therapy Treatment Plan Bed Mobility Training Transfer Training Gait Training Therapeutic Exercise Other Recommendations and Next Treatment Family training with for Focus ambulation without assistive device. Recommendations To Nursing Amount of Assist Needed Standby Assistance Discharge Recommendations PT Discharge Recommendations Home with Assistance
[2018-04-01] MEDS: METOPROLOL ER 25 MG TABLET 12.5 MG PO (20:38)
[2018-04-01] MEDS: TAMSULOSIN 0.4 MG CAPSULE PO (20:39)
[2018-04-01] MEDS: SENNOSIDES 8.6 MG TABLET 17.2 MG PO (20:40)
[2018-04-01] MEDS: SODIUM CHLORIDE 0.9% FLUSH 10 ML IV (20:55)
[2018-04-02] MEDS: HYDROCODONE/ACET 5/325 TABLET 2 TAB PO ×3 (02:57→11:28)
[2018-04-02] MEDS: hydrOXYzine pamoate 25 MG CAPSULE PO ×3 (02:57→11:28)
[2018-04-02 03:28] VITALS: BP 104/57; PULSE 71; RESP 16; TEMP 36.7; O2SAT 96
[2018-04-02] MEDS: LIOTHYRONINE 5 MCG TABLET 10 MCG PO (06:44)
[2018-04-02] MEDS: LEVOTHYROXINE 75 MCG TABLET PO (06:44)
[2018-04-02 07:45] VITALS: BP 120/61; PULSE 75; RESP 16; TEMP 36.6; O2SAT 100
[2018-04-02] MEDS: GABAPENTIN 600 MG TABLET PO (09:05)
[2018-04-02] MEDS: FISH OIL 1,000 MG CAPSULE 1000 MG PO (09:05)
[2018-04-02] MEDS: CELECOXIB 200 MG CAPSULE PO (09:05)
[2018-04-02] MEDS: buPROPion XL 150 MG TAB PO (09:06)
[2018-04-02] MEDS: DOCUSATE 100 MG CAPSULE PO (09:06)
[2018-04-02] MEDS: ASPIRIN EC 81 MG TABLET PO (09:06)
--- NOTE | 2018-04-02 09:14 | PM.PNPO.1 ---
Subjective Date Patient Seen: 04/02/18 Time Patient Seen: 09:14 Interval history: he is doing very well. Pain is 4/10. Independent with ambulation. Exam Vital Signs (past 8 hours): - 04/02/18 03:28 04/02/18 07:45 Temperature 98.0 F 97.9 F Pulse Rate 71 75 Respiratory Rate 16 16 Blood Pressure 104/57 L 120/61 Pulse Oximetry 96 100 Oxygen Delivery Method Room Air Back/Spine/Pelvis Other: Mild drainage on dressing. 5/5 motor both lower extremities. Objective Labs Result Diagrams: 04/01/18 05:50 04/01/18 05:50 Assessment & Plan Post-op Postoperative Procedures Operation Date: 03/31/18 07:45 Actual Procedures Side Surgeon p L4-5,L5-S1 Laminectomies & Ant/Post Instru. Fusion w/Bone Graft Not Applicable Fady Ramirez MD He is doing very well. He feels ready for discharge and we will set this up. Quality VTE Deep Vein Thrombosis/Pulmonary Embolism Present on Admission: No
--- NOTE | 2018-04-02 09:17 | P.DS_ITS ---
History of Present Illness Date Patient Seen: 04/02/18 Time Patient Seen: 09:15 Chief complaint: L45 L5S1 laminectomies anterior posterior fusion Narrative: 67-year-old male that was admitted with spinal stenosis. Discharge Providers Date of admission: 03/31/18 05:57 Primary care physician: Esha Graff MD Consults: 03/31/18 14:54 Consult to Occupational Therapy Evaluate & Treat Comment: Physician Instructions: Evaluate and treat Consult to Physical Therapy Evaluate & Treat Comment: Physician Instructions: Evaluate and Treat Discharge provider: Fady Ramirez MD Summary Discharge Diagnosis: Lumbar stenosis with radiculopathy Hospital Course: he underwent L4-5 and L5-S1 instrumented fusion and laminectomies on 03/31/2018. He did very well postoperatively. Within a few days he was able to ambulate independently. Pain was under good control on oral medication. Exam Vital Signs (past 8 hours): - 04/02/18 03:28 04/02/18 07:45 Temperature 98.0 F 97.9 F Pulse Rate 71 75 Respiratory Rate 16 16 Blood Pressure 104/57 L 120/61 Pulse Oximetry 96 100 Oxygen Delivery Method Room Air Back/Spine/Pelvis Other: 5/5 motor both lower extremities. Mild drainage on dressing Objective Labs Result Diagrams: 04/01/18 05:50 04/01/18 05:50 Discharge Plan Discharge Plan Patient Disposition: Home Discharge comment: follow-up 1.5 weeks Discharge Med Rec/Prescriptions Prescriptions: New celecoxib [Celebrex] 200 mg Capsule 200 mg PO BID PRN (Reason: pain) Qty: 60 RF: 0 docusate sodium 100 mg Capsule 100 mg PO BID PRN (Reason: constipation) Qty: 30 RF: 0 hydrocodone-acetaminophen 5-325 mg Tablet See Label Instructions .ROUTE .COMPLEX PRN (Reason: Pain, Severe (7-10)) Qty : 40 RF: 0 hydroxyzine pamoate 25 mg Capsule 25 mg PO Q4HR PRN (Reason: spasms) Qty: 20 RF: 0 Continue gabapentin 300 mg capsule 600 mg PO TID Qty: 180 RF: 2 metoprolol succinate [Toprol XL] 25 mg Tablet Extended Release 24 Hr 12.5 mg PO DAILY RF: 0 bupropion HCl [Wellbutrin XL] 150 mg Tablet Extended Release 24 Hr 150 mg PO QAM RF: 0 coenzyme Q10 30 mg Capsule 30 mg PO DAILY RF: 0 omega-3 fatty acids-fish oil [Fish Oil] 300-500 mg Capsule 500 mg PO DAILY RF: 0 tramadol 50 mg tablet 50 mg PO TID PRN (Reason: pain) RF: 0 aspirin 81 mg Tablet,Delayed Release (Dr/Ec) 81 mg PO DAILY RF: 0 liothyronine 5 mcg tablet 10 mcg PO DAILY RF: 0 levothyroxine 75 mcg tablet 75 mcg PO DAILY RF: 0 tamsulosin 0.4 mg capsule,extended release 24hr 0.4 mg PO DAILY RF: 0 Provider Discharge Instructions Diet: Diet as Tolerated Activity: limited BLT. 10 lb maximum lift Skin/Wound/Dressing Care Dressing: may change dressing and shower postop day 5. Discharge Data Primary Care Provider: Esha Graff Attending Provider: Fady Ramirez Admit Date/Time: 03/31/18 05:57 Quality VTE Deep Vein Thrombosis/Pulmonary Embolism Present on Admission: No
[2018-04-02 11:00] VITALS: BP 127/71; PULSE 80; RESP 16; TEMP 36.9; O2SAT 97
[2018-04-02] MEDS: HYDROMORPHONE 0.5 MG INJ 0.2 MG IV (11:37)
--- NOTE | 2018-04-02 11:52 | PT.IPTN ---
Current Diagnoses Scoliosis, unspecified (03/31/18) Unspecified inflammatory spondylopathy, lumbar region (03/31/18) Spinal stenosis, lumbar region with neurogenic claudication (03/31/18) Radiculopathy, lumbar region (03/31/18) Surgery Performed Operation Date: 03/31/18 07:45 Actual Procedures p L4-5,L5-S1 Laminectomies & Ant/Post Instru. Fusion w/Bone Graft(Not Applicable) - Fady Ramirez MD Physical Therapy Treatment Note M2 PT-IP Current Condition Start: 03/31/18 16:58 Freq: NEEDED Status: Active Protocol: Document 03/31/18 16:54 MDD (Rec: 03/31/18 17:12 MDD [id number]) Physical Therapy Current Condition Current Condition Evaluation Date 03/31/18 Treatment Diagnosis s/p Lumbar fusion Onset Date 03/31/18 Precautions Lumbar Precautions Log Roll No Twisting Limit Bending Lifting Restriction of 10 lbs Gait Belt above Incisional Area Other Precautions burnett catheter M3 PT-IP Subjective Start: 03/31/18 16:58 Freq: NEEDED Status: Active Protocol: Document 04/02/18 11:00 CLB (Rec: 04/02/18 11:52 CLB [id number]) Subjective Physical Therapy Visit Type Type Treatment Note Visit Start Time 11:00 Visit Stop Time 11:23 Total Visit Minutes 23 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 Therapy Pain Assessment Pain When Pain Assessed At Rest Pain Present Pain Present Pain Reported Location Back Intensity 5 Scale Used Numeric (1 - 10) Description Aching Pain Management Techniques Re-positioning Timing of Activity with Medications M4 PT-IP Mobility and Gait Start: 03/31/18 16:58 Freq: NEEDED Status: Active Protocol: Document 04/02/18 11:00 CLB (Rec: 04/02/18 11:52 CLB [id number]) PT-Bed Mobility Assessment Rolling Type of Rolling Roll to Right Level of Assist Independent Supine to Sit Supine to Sit Standby Assistance Sit to Supine Sit to Supine Independent Scooting Scooting to Edge of Bed Independent PT-Transfer Assessment Sit to and From Stand Sit to and from Stand Standby Assistance Use of Upper Extremities Equipment Transfer Assistive Device None Gait Belt Transfers Transfer Destination Bed Gait Assessment Gait Gait Assistance Required: Contact Guard Assist Distance (Feet) (feet) 300 Able to Maintain Weight Bearing Status Yes During Gait Assistive Devices Assistive Device None Gait Belt Comments Gait Comments Ambulation without assistive device with CG training and providing CGA. Stair Climbing Assessment Evaluation Level of Assist On Stairs Contact Guard Assistance Devices Stair Climbing Assistive Devices Left Railing Technique/Endurance Stair Climbing Direction Ascend and Descend Stair Climbing Technique Step to Step Number of Steps Climbed 3 Query Text: Stair Climbing Set # Repetitions (reps) 1 Comments Stair Climbing Comments with demonstration and CG training with providing CGA. M5 PT-IP Objective Assessments Start: 03/31/18 16:58 Freq: NEEDED Status: Active Protocol: Document 03/31/18 16:54 MDD (Rec: 03/31/18 17:12 MDD [id number]) Orientation Orientation/Cognition Level of Alertness Alert Orientation Name Age Birthday Month Date Year Day of Week Place Situation Language Function Ability No Deficits Noted Safety Awareness Understands Safety Issues Memory Description No Deficits Noted Gross Range of Motion Lower Extremity ROM Assessment Within Functional Limits Strength Lower Extremity Strength Assessment Within Functional Limits Coordination Assessment Gross Coordination Gross Coordination WNL Sensation Assessment Sensation Gross Sensation WNL M6 PT-IP Treatment Start: 03/31/18 16:58 Freq: NEEDED Status: Active Protocol: Document 04/01/18 12:10 GGD (Rec: 04/01/18 12:21 GGD [id number]) Physical Therapy Treatment Education Education Provided Precautions M7 PT-IP Assessment and Plan Start: 03/31/18 16:58 Freq: NEEDED Status: Active Protocol: Document 04/02/18 11:00 CLB (Rec: 04/02/18 11:52 CLB [id number]) PT Summary Assessment and Plan Summary Assessment Summary Pt continues to improve with all mobility able to ambulate safely CGA by w/o AD. Pt seems able to d/c home with assist when medically stable. Frequency of Treatment Frequency Of Treatment Twice a Day Treatment Plan Physical Therapy Treatment Plan Bed Mobility Training Transfer Training Gait Training Therapeutic Exercise Other Recommendations and Next Treatment Pt to d/c today. Focus Recommendations To Nursing Amount of Assist Needed Standby Assistance Discharge Recommendations PT Discharge Recommendations Home with Assistance
--- NOTE | 2018-04-02 14:20 | PC.NURSE ---
Discharge: Pt feels ready to d/c home. Seen by md and given final instructions. Seen by PT and given their final d/c instructions. Had a shower and dressings were changed to the back and the lt flank. Sutures are intact, edges approx, put the dressings back on for practice, had no problems. Pt received his oral meds but it was late due to act, he got 1 last dose of dilaudid prior to it being d/c. There was an issue with his insurance and his rx for celebrex (needs pre-auth) Md made aware, doesn't want to change the medication to anything else. The will take the rx home and the office can work on auth tomorrow per Dr. Ramirez. Reviewed d/c instruction sheets and questions answered. Priority load pass given for the chelo. D/c packet given. Cont w/poc.
--- NOTE | 2018-04-02 16:23 | CM.DPC ---
DCP Cont: Met w/pt before his DC today. Pt eager to return home, spouse and friend helping him today to get home. MARITZA reviewed and signed. No barriers to safe DC home as planned. JW
== END 2018-04-02 12:50 | disposition home or self-care (01) | DRG 455 ==
PROVIDERS: Admitting Provider Orthopaedic Surgery; PCP Family Medicine Geriatric Medicine; Visit Provider Orthopaedic Surgery
PROC: 0SG00A0 Fusion of Lumbar Vertebral Joint with Interbody Fusion Device, Anterior Approach, Anterior Column, Open Approach (ICD-10-PCS; CPT 22558; principal; 2018-03-31 07:45)
DX: M48.062 Spinal stenosis, lumbar region with neurogenic claudication (principal); M47.26 Other spondylosis with radiculopathy, lumbar region; M41.26 Other idiopathic scoliosis, lumbar region; E03.9 Hypothyroidism, unspecified; G47.30 Sleep apnea, unspecified
CPT/HCPCS: 36415; 80048; 85014; 85018; 94762; 97116; 97161; 97165; 97530; 99406; C1776; A9270; J0330; J0595; J0690; J1170; J2274; J2405; J2704; J3010; J3410

== ENCOUNTER → 2020-07-24 11:17 | Day surgery (SDC) | payer MEDICARE, OTHER, SELFPAY ==
[2018-03-31 16:00] VITALS: BMI 27.1
[2020-07-24] VITALS (7 sets, daily range): BP systolic 103–120; BP diastolic 58–78; PULSE 50–67; RESP 14–16; TEMP 36.4–36.6; O2SAT 95–99; BMI 24.4
--- NOTE | 2020-07-24 12:50 | PM.PREOP ---
Pre-operative Note COVID-19 COVID-19 status: Negative Interval Note History & Physical reviewed/Exam performed by Physician: Yes Changes to H&P: No ASA Class (for procedural sedation): II
[2020-07-24] MEDS: LACTATED RINGERS 1,000 ML 200 ML IV (12:51)
[2020-07-24] MEDS: LIDOCAINE 4% SOLN 50 ML 20 ML TOP (12:55)
[2020-07-24] MEDS: MIDAZOLAM 5 MG/5 ML VIAL IV (13:05)
[2020-07-24] MEDS: fentaNYL 250 MCG/5 ML INJ IV (13:05)
--- NOTE | 2020-07-24 13:13 | PM.OP.ENDO ---
Operative Date/Time/Diagnoses Date of procedure: 07/24/20 Time of procedure: 13:13 Pre-op diagnosis: History of Spicer's esophagus Post-op diagnosis: same Procedure & Clinicians Study performed: Aborted esophagoduodenoscopy Same procedure as scheduled: No Indications: 70-year-old man history of Spicer's esophagus here for routine EGD Surgeon: Forrest Saldivar Procedure Notes Procedure in detail: Patient placed in left lateral decubitus position. Time out was performed. Procedural sedation was administered with Versed and Fentanyl. A bite block was placed. the scope was inserted into the mouth. Despite sedation patient became very agitated pulling at the scope and lines and was unable to be safely adequately sedated to complete the procedure. The EGD was therefore canceled Specimen(s): none sent Complications: none Post-procedure Recommendations: Other recommendation (Follow-up with PCP) Disposition: same day surgery
--- NOTE | 2020-07-24 13:58 | SUR.PHASEII ---
Assumed care of pt, brought in, d/c instructions discussed, pt ready to go. Pt then wanted to talk with Dr. Saldivar
--- NOTE | 2020-07-24 14:26 | SUR.PHASEII ---
Dr. Saldivar spoke at length with pt and his . Pt then left when questions answered.
== END | disposition home or self-care (01) ==
PROVIDERS: PCP Family Medicine; Referring Provider Family Medicine; Visit Provider Surgery
PROC: 0DJ08ZZ Inspection of Upper Intestinal Tract, Via Natural or Artificial Opening Endoscopic (ICD-10-PCS; CPT 43235; principal; 2020-07-24 12:15)
DX: Z87.19 Personal history of other diseases of the digestive system (principal); Z53.09 Procedure and treatment not carried out because of other contraindication
CPT/HCPCS: 43235; J2250; J3010

== ENCOUNTER → 2023-11-02 09:40 | Outpatient (CLI) | payer MEDICARE, OTHER, SELFPAY ==
[2022-03-26 09:25] VITALS: BMI 27.1
--- NOTE | 2023-11-02 09:42 | DI.RAD.S_ITS ---
PROCEDURE: XR LUMBAR SPINE MIN 4V INDICATIONS: BACK PAIN LEFT HIP PAIN TECHNIQUE: 5 views of the lumbar spine were acquired, including bilateral oblique views. COMPARISON: [facility], XR LUMBAR SPINE 2 OR 3 VIEWS, 09/19/2020, 9:05. FINDINGS: Bones: 5 nonrib-bearing vertebrae are present. There is mild dextrocurvature of the upper lumbar spine with reciprocal levocurvature of the lumbosacral junction. Stable postsurgical changes of posterior spinal fusion from L4 through S1 with interbody spacers. No evidence for hardware failure. Moderate multilevel lumbar spondylitic changes. No acute vertebral body compression fractures. However, there appears to be mildly increased anterior vertebral body height loss at L2. No suspicious bony lesions. Soft tissues: Overlying bowel gas pattern is normal. No suspicious soft tissue calcifications. Oblique images: No pars defects. IMPRESSION: Lumbar spine without acute osseous abnormalities. Stable postsurgical changes of posterior spinal fusion from L4 through S1. Mildly increased anterior vertebral body height loss at L2. No evidence for acute compression fractures. Moderate multilevel lumbar spondylosis most prominent at L1-2 and L2-3. Dictated by: Clarence Arita M.D. on 11/02/2023 at 10:22 Approved by: Clarence Arita M.D. on 11/02/2023 at 10:27
== END ==
PROVIDERS: PCP Family Medicine; Referring Provider Physical Medicine & Rehabilitation; Visit Provider Physical Medicine & Rehabilitation
DX: S32.019A Unspecified fracture of first lumbar vertebra, initial encounter for closed fracture (principal); M47.816 Spondylosis without myelopathy or radiculopathy, lumbar region; M51.26 Other intervertebral disc displacement, lumbar region; M48.00 Spinal stenosis, site unspecified; M25.552 Pain in left hip; Z98.1 Arthrodesis status
CPT/HCPCS: 72110

== ENCOUNTER 2023-12-08 09:53 | Outpatient (CLI) | payer MEDICARE, OTHER, SELFPAY ==
[2022-03-26 09:25] VITALS: BMI 27.1
[2023-12-08] VITALS (8 sets, daily range): BP systolic 105–126; BP diastolic 59–63; PULSE 53–64; RESP 13–28; O2SAT 97–100
--- NOTE | 2023-12-08 10:45 | DI.RAD.S_ITS ---
PROCEDURE: PAIN SI JOINT INJECTION INDICATIONS: Left SI joint injection COMPARISON: None. FINDINGS: Fluoroscopic spot filming was performed to verify placement of spinal needles at the left sacroiliac joint, as labeled on the films. Appropriate location(s) of the needle tip(s) was confirmed by injection of iodinated contrast. IMPRESSION: Intra procedural examination demonstrating appropriate positions of the needles. Dictated by: Fredo Pak M.D. on 12/08/2023 at 14:08 Approved by: Fredo Pak M.D. on 12/08/2023 at 14:09
[2023-12-08] MEDS: MIDAZOLAM 2 MG/2 ML VIAL IV (11:34)
[2023-12-08] MEDS: BUPIVACAINE 0.5% (PF) 10 ML VIAL 2 ML INJ (11:38)
[2023-12-08] MEDS: BETAMETHASONE 30 MG/5 ML MDV 12 MG INJ (11:38)
[2023-12-08] MEDS: iopamidoL 15 ML VIAL 3 ML INJ (11:39)
--- NOTE | 2023-12-08 11:49 | PM.PROC.IR.1 ---
Date/Time/Diagnoses Date of procedure: 12/08/23 Time of procedure: 11:49 Pre-procedure diagnosis: Sacroiliac Joint Pain/DJD Post-procedure diagnosis: same Procedure Notes Procedure: Fluoroscopically guided contrast controlled left sacroiliac joint injection Indications: Daren is referred by Dr. Wan for treatment of left sacroiliac joint DJD Physician: Lisandro Kelly Total Fluoroscopy time (seconds): 7 Total sedation minutes: 10 Complications: none Procedure in detail & Post-procedure care: DESCRIPTION OF PROCEDURE Fluoroscopic guided, contrast controlled left sacroiliac joint injection Following review of allergies and review of potential side effects and complications, including, but not necessarily limited to, infection, allergic reaction, local tissue breakdown, temporary as well as permanent nerve injury, paralysis, stroke and possible , the patient indicated that they understood and agreed to proceed. An informed consent was signed by the patient, witnessed by a nurse, and placed in the patient's chart. Additionally, other treatment options including modalities, medications, and physical therapy were reviewed with the patient. After review of previous anaesthesic history and IV conscious sedation the patient was deemed safe to proceed with today?s procedure with IV conscious sedation as ASA class II designation. Safety time-out was performed to confirm patient ID, procedure to be performed and site of procedure. IV sedation was accomplished with a combination of 2mg of Versed administered by the RN after DO order, titrated to patient comfort during the course of the procedure while the patient remained responsive to all verbal commands. In the prone position following sterile prep and drape of the pelvic region, the hyper lucency on in the inferior aspect of the left sacroiliac joint was identified fluoroscopically the skin was anesthetized be a 25 gauge 1 eventual with approximately 2cc of 1% lidocaine solution. At this point, a 22 gauge 3inch spinal needle was atraumatically introduced and advanced under fluoroscopic guidance into the inferior aspect of the left sacroiliac joint. Following negative aspiration, approximately 0.3cc of [id number]-300 was injected confirming intra-articular placement without vascular uptake. Radiographic data, including multiple fluoroscopic views of the pelvis, reveals a spinal needle in the left sacroiliac joint hyper lucent zone. Subsequent view show flow contrast tear superiorly and inferiorly within the joint capsule without vascular intrathecal uptake. At this point a total of 1cc or 0.5% Marcaine was combined with 1cc of 6mg of betamethasone was injected without incident. The patient tolerated the procedure well without signs or symptoms of complications prior to transfer to the recovery area for further monitoring. The patient was then transferred to the recovery area with a bur observed for an appropriate time after the injection. The patient reverted a vas score of 7 prior to the procedure and postprocedure vas of 1. POSTOP INSTRUCTIONS The patient was provided with a pain like to continue to record the patient's response to the target specific procedure prior to the patient's follow-up visit with the referring physician. Additionally, specific post injection care instructions and a contact number to our office were provided if concerns arise regarding the possible complications associated with procedure are suspected.
== END 2023-12-08 12:08 | disposition home or self-care (01) ==
PROVIDERS: PCP Family Medicine; Referring Provider Physical Medicine & Rehabilitation; Visit Provider Physical Medicine & Rehabilitation
DX: M53.3 Sacrococcygeal disorders, not elsewhere classified (principal); M46.1 Sacroiliitis, not elsewhere classified
CPT/HCPCS: 27096; 77002; 99152; J0702; J2250